=== PATIENT | female | born 1995 | race Caucasian/White ===

== ENCOUNTER → 2020-01-01 14:08 | Outpatient (BNVA) | payer SELFPAY | PROVIDERS: Family Provider Nurse Practitioner Family; PCP Nurse Practitioner Family; Visit Provider Nurse Practitioner Family | DX: N30.00 Acute cystitis without hematuria (principal); R10.9 Unspecified abdominal pain | CPT/HCPCS: 80053; 81000 ==

== ENCOUNTER → 2024-11-24 15:07 | Outpatient (BNVA) | payer SELFPAY | PROVIDERS: Family Provider Nurse Practitioner Family; PCP Nurse Practitioner Family; Visit Provider Nurse Practitioner Family | DX: K52.9 Noninfective gastroenteritis and colitis, unspecified (principal); Z90.49 Acquired absence of other specified parts of digestive tract | CPT/HCPCS: 74018; 80053; 80061; 81003; 84443; 85025 ==